=== PATIENT | female | born 1980 | race Caucasian/White ===

== ENCOUNTER 2017-08-19 15:29 | Emergency (ER) | payer OTHER ==
[2017-08-19] MEDS: IBUPROFEN 800 MG TABLET. PO ×2 (17:11)
[2017-08-19 17:21] LABS: INFLUENZA A PATIENT NEGATIVE (NEGATIVE); INFLUENZA B PATIENT NEGATIVE (NEGATIVE); OBC FLU VALID
== END 2017-08-19 17:47 | disposition home or self-care (01) ==
LOC: ER 17:47
DX: B34.9 Viral infection, unspecified (principal); Z20.828 Contact with and (suspected) exposure to other viral communicable diseases
CPT/HCPCS: 87804; 87804-59; 99284

== ENCOUNTER 2020-06-05 21:19 | Emergency (ER) | payer OTHER ==
[~2020-06-05] VITALS: Ht 149.9 cm; Wt 72.7 kg
[~2020-06-05 21:19] MED LIST: HYDR-3164 PO; LIOT25TA4 PO; OSEL75CA PO; PENI500T PO
[2020-06-05 21:32] VITALS: BP 134/100
[2020-06-05] MEDS ORDERED: PRED20TA PO (22:16)
[2020-06-05] MEDS ORDERED: NAPR-514 PO (22:16)
--- NOTE | 2020-06-05 22:16 | ED.ADGEN ---
Past Medical History Past Medical History: Other Additional Past Medical Histor: VAGINAL AND RECTAL PROLAPSE Past Surgical History: Hysterectomy Additional Past Surgical Histo: FEBRUARY 13, 2020 HYSTERECTOMY Smoking Status: Never Smoker Alcohol Use: None Drug Use: None General Adult EDM: Chief Complaint: BACK PAIN OR INJURY HPI: HPI: Patient is a 40 year old female, accompanied by a family member, who presents emergency department with complaints of low back pain that shoots into both of her legs. Patient states she was seen at [facility] 2 days ago and had MRI and was diagnosed with bulging disks. She denies any loss of bowel or blad jewel control, or saddle anesthesia. She denies any fever, cough, shortness of breath, or weakness of her lower extremities. Patient currently rates her pain a 10 out of 10 on the pain scale, she denies any alleviating factors. She denies any recent injury or fall. Review of Systems: Review of Systems: Complete ROS is negative unless otherwise noted in HPI. Current Medications: Current Medications Medications (Trade) Dose Ordered Sig/Kalen Start Time Stop Time Status Last Admin Dose Admin Methylprednisolone Sodium Succinate (SOLU-Medrol 125MG VIAL) 125 mg 1X ONCE 06/05/20 22:30 06/05/20 22:31 DC 06/05/20 22:10 125 MG Morphine Sulfate (Morphine Sulfate) 5 mg 1X ONCE 06/05/20 22:30 06/05/20 22:31 DC 06/05/20 22:10 5 MG Allergies: Allergies: Allergies Coded Allergies Type Severity Reaction Last Updated Verified No Known Drug Allergies 03/23/15 No Physical Exam: PE: See Above Constitutional: Well developed, well nourished, no acute distress, non-toxic appearance, appears uncomfortable. [] HENT: Normocephalic, atraumatic, bilateral external ears normal, nose normal. [] Eyes: PERRLA, EOMI, conjunctiva normal, no discharge. [] Neck: Normal range of motion, no stridor. [] Cardiovascular:Heart rate regular rhythm Lungs & Thorax: Respirations even and unlabored, no retractions, no respiratory distress Back: Increased pain with movement of bilateral lower extremities, no bony tenderness, no step-off, no crepitus Skin: Warm, dry, no erythema, no rash. [] Extremities: No cyanosis, ROM intact, no edema. [] Neurologic: Alert and oriented X 3, no focal deficits noted. [] Psychologic: Affect normal, judgement normal, mood normal. [] Current Patient Data: Vital Signs: Vital Signs Date Time Temp Pulse Resp B/P (MAP) Pulse Ox O2 Delivery O2 Flow Rate FiO2 06/05/20 21:32 98.2 101 20 134/100 (111) 100 Room Air 98.2 EKG: EKG: [] Heart Score: Risk Factors: Risk Factors: DM, Current or recent (<one month) smoker, HTN, HLP, family history of CAD, obesity. Risk Scores: Score 0 - 3: 2.5% MACE over next 6 weeks - Discharge Home Score 4 - 6: 20.3% MACE over next 6 weeks - Admit for Clinical Observation Score 7 - 10: 72.7% MACE over next 6 weeks - Early Invasive Strategies Radiology/Procedures: Radiology/Procedures: [] Course & Med Decision Making: Course & Med Decision Making Pertinent Labs and Imaging studies reviewed. (See chart for details) 40-year-old female presented to the emergency department with complaints of bilateral low back pain that radiated to her legs. Patient was given an IM injection of morphine and Solu-Medrol. Patient reported complete resolution of the pain after his medications. Prescriptions were written for naproxen and a prednisone taper. The patient was provided with neurosurgery's information for follow-up. She was encouraged to return the ER if symptoms worsen or fever develop. Patient verbalized an understanding of home care, medications, follow-up, and return to ED instructions and was in agreement with the plan of care. [] I have reviewed the PA/PHYSICIAN'S ASSISTANT's note and Plan of Care. I was available for consultation as needed during the patient's visit in the emergency department. I agree with the clinical impression, plans and disposition. Lissyon Disclaimer: Ronda Disclaimer: This electronic medical record was generated, in whole or in part, using a voice recognition dictation system. Departure Departure Impression: Primary Impression: Chronic low back pain with bilateral sciatica Disposition: 01 DC HOME SELF CARE/HOMELESS Condition: STABLE Referrals: NO PCP (PCP) ALLI TRACY MD Patient Instructions: Chronic Back Pain Additional Instructions: Fill the prescriptions take as directed for back pain. Recommend that you call our neurosurgery and Dr. Tracy for further evaluation and treatment of your chronic back pain due to bulging disks. Return to the ER if your symptoms worsen or fever develops. Scripts Naproxen (NAPROXEN) 500 Mg Tablet 1 TAB PO BID PRN for PAIN for 10 Days, #20 TAB 0 Refills Prov: NERI BUCK APRN 06/05/20 Prednisone (PREDNISONE) 20 Mg Tablet 1 TAB PO UD for 12 Days, #15 TAB 2 tabs by mouth days 1,2,3 then 1.5 tabs by mouth days 4,5,6 then 1 tab by mouth days 7,8,9 then 0.5 tab by mouth day 10,11,12 Prov: NERI BUCK APRN 06/05/20 Problem Qualifiers Primary Impression: Chronic low back pain with bilateral sciatica Back pain laterality: bilateral Qualified Codes: M54.42 - Lumbago with sciatica, left side; M54.41 - Lumbago with sciatica, right side; G89.29 - Other chronic pain NERI BUCK APRN Jun 05, 2020 22:16 CONRAD ARNOLD MD Jun 06, 2020 00:25
[2020-06-05] MEDS ORDERED: methylPREDNISolone SOD SUCC PF 125 MG/2 ML VIAL. IM ONE (22:30)
[2020-06-05] MEDS ORDERED: MORPHINE SULFATE 10 MG/ML VIAL. IM ONE (22:30)
== END 2020-06-05 22:31 | disposition home or self-care (01) ==
LOC: ER 21:19
DX: G89.29 Other chronic pain (principal); M54.42 Lumbago with sciatica, left side; M54.41 Lumbago with sciatica, right side; Z90.710 Acquired absence of both cervix and uterus
CPT/HCPCS: 96372; 99284; J2270; J2930

== ENCOUNTER 2020-06-08 17:43 | Emergency (ER) | payer OTHER ==
[~2020-06-08] VITALS: Ht 149.9 cm; Wt 72.0 kg
[~2020-06-08 17:43] MED LIST changes: +NAPR-514 PO; +PRED20TA PO
[2020-06-08 19:07] VITALS: BP 151/80
[2020-06-08 19:39] LABS: BILIRUBIN,URINE NEGATIVE (NEG); CLARITY,URINE CLEAR; COLOR,URINE YELLOW; NITRITE,URINE NEGATIVE (NEG); PROTEIN,URINE NEGATIVE (NEG-TRACE); UROBILINOGEN,URINE 0.2 mg/dL (0.2 mg/dL)
--- NOTE | 2020-06-08 19:41 | PHYS DOC ---
Past Medical History Past Medical History: Anxiety, Bipolar, Depression, Other Additional Past Medical Histor: VAGINAL AND RECTAL PROLAPSE, BULGING DISC Past Surgical History: Hysterectomy Additional Past Surgical Histo: FEBRUARY 13, 2020 HYSTERECTOMY, RECTAL PROLAPSE REPAIR Smoking Status: Never Smoker Alcohol Use: None Drug Use: None General Adult EDM: Chief Complaint: GROIN PAIN HPI: HPI: Patient is a 40 year old female who presents with left groin pain that radiates into her left leg. She reports the pain began after she had surgery in February for a hysterectomy and rectal prolapse repair. Due to pain not resolving she had an MRI done at which showed a bulging disc. Pain is described as burning or tingling. She reports pain is worse with ice/heat and there is little improvement after taking tylenol/ibuprofen. Pain is preventing her from doing activities of daily living. She has an appointment in 2-3 days with her PCP and an appointment with pain management on . She also describes urinary frequency with a foul smell recently. Review of Systems: Review of Systems: Constitutional: Denies fever or chills HENT: Denies nasal congestion or sore throat Respiratory: Denies cough or shortness of breath Cardiovascular: Denies chest pain or palpitations GI: Reports abdominal pain; denies nausea or vomiting : Denies dysuria or hematuria, reports urinary frequency Musculoskeletal: Reports back pain and joint pain Integument: Denies rash or skin lesions, reports 2 bruises Neurologic: Denies headache, focal weakness or sensory changes Complete systems were reviewed and found to be within normal limits, except as documented in this note. Allergies: Allergies: Allergies Coded Allergies Type Severity Reaction Last Updated Verified No Known Drug Allergies 03/23/15 No Physical Exam: PE: Constitutional: Well developed, well nourished, no acute distress, non-toxic appearance HENT: Normocephalic, atraumatic Eyes: PERRL, EOMI, conjunctiva normal, no discharge Neck: Normal range of motion, no tenderness, supple Lungs & Thorax: No respiratory distress, equal chest rise and fall Abdomen: Soft, no tenderness, no guarding/rebound tenderness/distention; pelvis stable and nontender Skin: Warm, dry, no erythema, no rash Back: No midline tenderness, left paraspinal tenderness noted, no CVA tenderness Extremities: No tenderness, ROM intact, no edema, pain to left leg with straight leg raise Neurologic: Alert and oriented X 3, no focal deficits noted Psychologic: Affect normal, judgment normal Current Patient Data: Vital Signs: Vital Signs Date Time Temp Pulse Resp B/P (MAP) Pulse Ox O2 Delivery O2 Flow Rate FiO2 06/08/20 19:07 98.1 113 16 151/80 (103) 97 Room Air 98.1 Course & Med Decision Making: Course & Med Decision Making Pertinent Labs reviewed. (See chart for details) Patient is a 40 year old female who presents with left groin pain that radiates into her left leg. Patient has appointments with PCP and pain management this week, but is needing something for pain in the meantime. Percocet provided in the ED, her son drove her. Prescriptions for percocet and flexeril provided for home. Associated foul smelling urine reported, UA ordered. UA shows no signs of infection. Patient stable for discharge with outpatient follow-up with PCP/pain management. Discussed findings and plan with patient and family, who acknowledge un derstanding and agreement. Ronda Disclaimer: Ronda Disclaimer: This electronic medical record was generated, in whole or in part, using a voice recognition dictation system. Departure Departure Impression: Primary Impression: Sciatica of left side Disposition: 01 DC HOME SELF CARE/HOMELESS Condition: STABLE Referrals: NO PCP (PCP) ANTONETTE MOCTEZUMA MD Patient Instructions: Sciatica, [id number] Additional Instructions: Follow up with primary care provider. Follow up with pain management or with Dr. Antonette Moctezuma (pain management)- referral above Scripts Cyclobenzaprine Hcl (CYCLOBENZAPRINE HCL) 10 Mg Tablet 1 TAB PO TID PRN for MUSCLE PAIN, #14 TAB Prov: AYLA RAE DO 06/08/20 Oxycodone/Apap 5-325 (PERCOCET 5-325 MG TABLET ) 1 Each Tablet 0.5 TAB PO PRN Q6HRS PRN for PAIN, #6 TAB 0 Refills Prov: AYLA RAE DO 06/08/20 AYLA RAE DO Jun 08, 2020 19:41
[2020-06-08 19:44] LABS: BACTERIA,URINE FEW /HPF (0-FEW); RBC,URINE OCC /HPF (0-2)
[2020-06-08] MEDS ORDERED: OXYC1TAB15 PO (20:15)
[2020-06-08] MEDS ORDERED: CYCL10TA2 PO (20:15)
[2020-06-08] MEDS ORDERED: oxyCODONE/APAP 5/325 1 TAB TABLET PO ONE (20:30)
[2020-06-08] MEDS ORDERED: CYCLOBENZAPRINE 10 MG TABLET. PO ONE (20:30)
== END 2020-06-08 20:30 | disposition home or self-care (01) ==
LOC: ER 17:43
DX: M54.32 Sciatica, left side (principal); F31.9 Bipolar disorder, unspecified; F41.9 Anxiety disorder, unspecified; Z90.710 Acquired absence of both cervix and uterus
CPT/HCPCS: 81001; 81025; 99283

== ENCOUNTER 2020-09-19 17:59 | Emergency (ER) | payer OTHER ==
[~2020-09-19] VITALS: Ht 147.3 cm; Wt 72.7 kg
[~2020-09-19 17:59] MED LIST changes: +CYCL10TA2 PO; +OXYC1TAB15 PO
[2020-09-19 18:28] VITALS: BP 149/100
--- NOTE | 2020-09-19 18:37 | PHYS DOC ---
Past Medical History Past Medical History: Anxiety, Bipolar, Depression, Other Additional Past Medical Histor: VAGINAL AND RECTAL PROLAPSE, BULGING DISC Past Surgical History: Hysterectomy Additional Past Surgical Histo: FEBRUARY 13, 2020 HYSTERECTOMY, RECTAL PROLAPSE REPAIR Smoking Status: Never Smoker Alcohol Use: None Drug Use: None General Adult EDM: Chief Complaint: LOWER BACK PAIN OR INJURY HPI: HPI: 40-year-old female past medical history of bipolar disorder anxiety, presents the ED with her daughter (who drove her) complaints of sharp, left-sided low back pain that radiates to her buttocks and down posterior left leg, intermittent, waxing waning since February after patient had MAURICIO-BSO with rectal prolapse repair at . Reports symptoms started after this and she was referred to pain management. Pain management performed "all that, CTs and MRI," that showed she had disc herniations. Patient ports she received steroid injections from this but they are refusing to prescribe her any opioid pain medication. Is not taking any medicine for the pain. Denies any associated trauma, IV drug use, alcohol abuse, weight loss, night sweats, saddle anesthesia, urinary or or bowel retention or incontinence. Patient reports the pain causes her to "pee alot." No history of trauma, history of IV drug use, history of cancer, history of sciatica, history of malignancy, history of immunocompromise state, neurologic complaints including saddle anesthesia, weakness or paresthesias, urinary retention, bowel or bladder incontinence, night pain, fever, chills or night sweats, anticoagulants or coagulopathy, prolonged steroid use, older age, presence of contusions or abrasions. Review of Systems: Review of Systems: Constitutional: Denies fever or chills. [] Eyes: Denies change in visual acuity. [] HENT: Denies nasal congestion or sore throat. [] Respiratory: Denies cough or shortness of breath. [] Cardiovascular: Denies chest pain or edema. [] GI: Denies abdominal pain, nausea, vomiting, bloody stools or diarrhea. [] : Denies dysuria, hematuria, Musculoskeletal: Denies CVA tenderness, joint deformity or swelling Integument: Denies rash or diaphoresis Neurologic: Denies headache, focal weakness or sensory changes. [] Endocrine: Denies polyuria or polydipsia. [] Lymphatic: Denies swollen glands. [] Psychiatric: Denies depression or anxiety. [] Heart Score: C/O Chest Pain: No Risk Factors: Risk Factors: DM, Current or recent (<one month) smoker, HTN, HLP, family history of CAD, obesity. Risk Scores: Score 0 - 3: 2.5% MACE over next 6 weeks - Discharge Home Score 4 - 6: 20.3% MACE over next 6 weeks - Admit for Clinical Observation Score 7 - 10: 72.7% MACE over next 6 weeks - Early Invasive Strategies Allergies: Allergies: Allergies Coded Allergies Type Severity Reaction Last Updated Verified No Known Drug Allergies 03/23/15 No Physical Exam: PE: Constitutional: Well developed, well nourished, swaying back and forth rubbing her leg and abck HENT: Normocephalic, atraumatic, Eyes: EOMI, conjunctiva normal, no discharge. Neck: Normal range of motion, supple, Cardiovascular: S1/2 present, regular rhythm Lungs & Thorax: Speaking in full sentences, bilateral equal chest rise, no tachypnea or increased work of breathing Abdomen: soft, no tenderness, Skin: Warm, dry, no erythema, no rash. [] Back: No CVA tenderness, cannot reproduce patient's pain but origin is over left SI joint -no midline pain or step-offs Extremities: No tenderness, no cyanosis, no lower extremity edema Neurologic: Alert and oriented X 3, normal motor function, normal sensory fun ction, no focal deficits noted. [] Psychologic: Affect normal, judgement normal, mood normal. [] EKG: EKG: [] Radiology/Procedures: Radiology/Procedures: [] Course & Med Decision Making: Course & Med Decision Making Pertinent Labs and Imaging studies reviewed. (See chart for details) Concern for chronic left-sided low back pain for SI joint with sciatica in the setting of known disc herniations. Patient with no neurologic deficits. Urinalysis with no RBCs or WBCs, few bacteria, negative for nitrates or leukocyte esterase. Patient calm and in no distress. Will discharge home with strict ED return precautions were given for saddle anesthesia, urine or bowel retention or incontinence, weight loss, night sweats or neurologic deficits. Encouraged urgent outpatient follow-up with PMD and pain management and neurosurgery. Life-threatening processes were considered but are low suspicion at this time, given history, physical exam and ED workup. Pt was educated on all prescription medications and adverse effects. All patient's questions were answered and pt was stable at time of discharge. Life/limb-threatening differential includes but is not limited to, aortic dissection/aneurysm, cauda equina syndrome, transverse myelitis, spinal cord/epidural compression syndromes, discitis, spinal stenosis, epidural abscess or hematoma, osteomyelitis, disc herniation, surgical abdomen, stable or unstable fracture, renal/ureteral colic, sepsis, meningitis, musculoskeletal injury, traumatic injury, intraabdominal/retroperitoneal or pelvic bleeding. I spoken with the patient and her caregivers. I explained the patient's condition, diagnoses and treatment plan based on the information available to me at this time. I have answered the patient and her caregiver's questions and addressed any concerns. The patient and her caregivers have a good understanding of patient's diagnosis, condition and treatment plan as can be exp ected at this point. Vital signs have been stable. Patient's condition is stable and appropriate for discharge from the emergency department. Patient will pursue further outpatient evaluation with primary care physician or other designated or consulting physician as outlined in the discharge instructions. The patient and/or caregivers are agreeable to this plan of care and follow-up instructions have been explained in detail. The patient and/or caregivers have received these instructions in written form and have expressed an understanding of the discharge instructions. The patient and/or caregivers are aware that any significant change of condition or worsening of symptoms should prompt immediate return to this or the closest emergency department or c all to 911. Ronda Disclaimer: Ronda Disclaimer: This electronic medical record was generated, in whole or in part, using a voice recognition dictation system. Departure Departure Impression: Primary Impression: Chronic left SI joint pain Additional Impression: Left-sided low back pain with sciatica Disposition: 01 DC HOME SELF CARE/HOMELESS Condition: STABLE Referrals: NO PCP (PCP) FOLLOW UP WITH FAMILY MEDICINE: Family Medicine Address: [address] [place] [address] Patient Instructions: Sacroiliac Joint Dysfunction, Sciatica Additional Instructions: FOLLOW UP WITH PAIN MANAGEMENT: [facility] Address: [address] [address] [place] [address] FOLLOW UP WITH NEUROSURGERY: [facility] Address: [address] [place] [address] EMERGENCY DEPARTMENT GENERAL DISCHARGE INSTRUCTIONS Thank you for coming to [facility] Emergency Department (ED) today and trusting us with you care. We trust that you had a positive experience in our Emergency Department. If you wish to speak to the department management, you may call the Director at [phone]. YOUR FOLLOW UP INSTRUCTIONS ARE FOLLOWS: 1. Do you have a private Doctor? If you do not have a private doctor, please ask for a resource list of physicians or clinics that may be able to assist you with follow up care. 2. The Emergency Physicain has interpreted your x-rays. The X-Ray specialist will also review them. If there is a change in the findings, you will be notified in 48 hours when at all possible. 3. A lab test or culture has been done, your results will be reviewed and you will be notified if you need a change in treatment. ADDITIONAL INSTRUCTIONS AND INFORMATION: 1. Your care today has been supervised by a physician who is specially trained in emergency care. Many problems require more than one evaluation for a complete diagnosis and treatment. We recommend that you schedule your follow up appointment as recommended to ensure complete treatment of you illness or injury. If you are unable to obtain follow up care and continue to have a problem, or if your condition worsens, we recommend that you return to the ED. 2. We are not able to safely determine your condition over the phone nor are we able to give sound medical advice over the phone. For these safety reasons, if you call for medical advice we will ask you to come to the ED for further evaluation. 3. If you have any questions regarding these discharge instructions please call the ED at [phone]. SAFETY INFORMATION: In the interest of safety, wellness, and injury prevention; we encourage you to wear your sealbelt, if you smoke; quite smoking, and we encourage family to use a protective helmet for bicycling and other sporting events that present an increased risk for head injury. IF YOUR SYMPTOMS WORSEN OR NEW SYMPTOMS DEVELOP, OR YOU HAVE CONCERNS ABOUT YOUR CONDITION; OR IF YOUR CONDITION WORSENS WHILE YOU ARE WAITING FOR YOUR FOLLOW UP APPOINTMENT; EITHER CONTACT YOUR PRIMARY CARE DOCTOR, THE PHYSICIAN WHOSE NAME AND NUMBER YOU WERE GIVEN, OR RETURN TO THE ED IMMEDIATELY. Scripts Lidocaine (Lido Ras) 1 Each Adh..patch 1 EACH TP DAILY for 5 Days, #5 PATCH 5% pathc, Apply 1 patch for 12 hours, remove for another 12 hours. May repeat, 1 patch per day as instructed above. Prov: MONA SMALLWOOD DO 09/19/20 Methocarbamol (ROBAXIN-750) 750 Mg Tablet 750 TAB PO TID for back pain, #20 TAB 0 Refills Prov: MONA SMALLWOOD DO 09/19/20 MONA SMALLWOOD DO Sep 19, 2020 18:37
[2020-09-19] MEDS ORDERED: LIDOCAINE (700MG/PATCH) PATCH. TD ONE (19:00)
[2020-09-19] MEDS ORDERED: LIDOCAINE (700MG/PATCH) PATCH. TD SCH (19:00)
[2020-09-19] MEDS ORDERED: KETOROLAC 60 MG/2 ML VIAL. IM ONE (19:15)
[2020-09-19] MEDS ORDERED: diazePAM 5 MG TABLET PO ONE (19:15)
[2020-09-19] MEDS ORDERED: KETOROLAC 30 MG/ML VIAL. IM ONE (20:00)
[2020-09-19 20:23] LABS: BILIRUBIN,URINE NEGATIVE (NEG); CLARITY,URINE CLEAR; COLOR,URINE YELLOW; NITRITE,URINE NEGATIVE (NEG); PROTEIN,URINE NEGATIVE (NEG-TRACE); UROBILINOGEN,URINE 0.2 mg/dL (0.2 mg/dL)
[2020-09-19 20:29] LABS: BARBITURATES NEG (NEG); BENZODIAZEPINES NEG (NEG); CANNABINOIDS NEG (NEG); COCAINE NEG (NEG); METHADONE NEG (NEG); OPIATES NEG (NEG); PHENCYCLIDINE NEG (NEG)
[2020-09-19 20:30] LABS: AMPHETAMINE/METHAMPHETAMINE POS (NEG); BACTERIA,URINE FEW /HPF (0-FEW); RBC,URINE 0 /HPF (0-2); WBC,URINE 0 /HPF (0-4)
[2020-09-19 20:34] LABS: U PREG PATIENT NEGATIVE (NEG)
[2020-09-19] MEDS ORDERED: METH-38 PO (20:43)
[2020-09-19] MEDS ORDERED: LIDO1ADH78 TP (20:43)
== END 2020-09-19 20:55 | disposition home or self-care (01) ==
LOC: ER 17:59
DX: G89.29 Other chronic pain (principal); M54.42 Lumbago with sciatica, left side; F41.9 Anxiety disorder, unspecified; F32.9 Major depressive disorder, single episode, unspecified; Z90.710 Acquired absence of both cervix and uterus; Z98.890 Other specified postprocedural states
CPT/HCPCS: 80307; 81001; 81025; 96372; 99283; J1885